=== PATIENT | male | born 1955 | race Caucasian/White ===

== ENCOUNTER 2017-08-24 12:57 | Inpatient (IN) ==
[2017-08-24] MEDS ORDERED: NITROGLYCERIN SL 0.4 MG TABLET SL PRN ×2 (13:20→14:27)
[2017-08-24] MEDS ORDERED: NITROGLYCERIN 2% OINT 1 INCH/GM PACK TOP STA (13:20)
[2017-08-24] MEDS ORDERED: METOPROLOL TARTRATE 5 MG/5 ML VIAL IV STA (13:20)
[2017-08-24] MEDS ORDERED: METOPROLOL TARTRATE 5 MG/5 ML VIAL IV ONE (13:39)
[2017-08-24] MEDS ORDERED: NITROGLYCERIN SL 0.4 MG TABLET SL ONE (13:39)
[2017-08-24] MEDS ORDERED: NITROGLYCERIN 2% OINT 1 INCH/GM PACK TOP ONE (13:40)
[2017-08-24] MEDS ORDERED: METOPROLOL TARTRATE 25 MG TABLET PO STA (13:46)
[2017-08-24] MEDS ORDERED: METOPROLOL TARTRATE 25 MG TABLET ONE (14:10)
[2017-08-24] MEDS ORDERED: MAGNESIUM SULF RIDER 4 GM in PREMIX 1 EACH IV PRN (14:20)
[2017-08-24] MEDS ORDERED: MAGNESIUM SULF RIDER 2 GM in PREMIX 1 EACH IV PRN (14:20)
[2017-08-24] MEDS ORDERED: ZALEPLON 5 MG CAPSULE PO PRN (14:20)
[2017-08-24] MEDS ORDERED: POTASSIUM CHLORIDE 20 MEQ TABLET PO PRN (14:20)
[2017-08-24] MEDS ORDERED: ONDANSETRON 4 MG/2 ML VIAL IV PRN (14:20)
[2017-08-24] MEDS ORDERED: MORPHINE 2 MG/1 ML SYRINGE IV PRN (14:20)
[2017-08-24] MEDS ORDERED: SODIUM CHLORIDE 0.9% 1,000 ML IV SCH (14:30)
[2017-08-24] MEDS ORDERED: ASPIRIN CHEW 81 MG TABLET PO ONE (21:25)
[2017-08-24] MEDS: ENOXAPARIN 120 MG/0.8 ML SYRINGE SUBCUT SCH (21:45)
[2017-08-24] MEDS: METOPROLOL TARTRATE 25 MG TABLET PO SCH (21:45)
[2017-08-24] MEDS: PANTOPRAZOLE 40 MG TABLET PO SCH (21:45)
[2017-08-24] MEDS: SUCRALFATE 1 GM/10 ML UDCUP PO SCH (21:45)
[2017-08-24] MEDS: ATORVASTATIN 20 MG TABLET PO SCH (21:45)
[2017-08-25 06:13] LABS: Basophils % 0.3 % (0.0-0.8); Eosinophils % 0.3 % (0.00-10.9); Hematocrit 45.1 VOL% (42.0-52.0); Hemoglobin 15.6 GM/DL (14.0-18.0); Immature Granulocytes % 0.5 %; Immature Granulocytes Absolute 0.06 #; Lymphocytes # 1.7 10*3/uL (1.4-4.0); Lymphocytes % 14.5 % (21.2-54.2); Mean Corpuscular HGB Conc 34.6 GM/DL (32-36); Mean Corpuscular Hemoglobin 32 PG (27-34); Mean Platelet Volume 10.3 FL (9.6-12.0); Monocytes # 1.3 10*3/uL (0.11-0.8); Neutrophils # 8.6 10*3/uL (1.4-7.4); Neutrophils % 73.4 % (38.7-73.9); Platelet Count 166 T/CUMM (130-400); Red Cell Distribution Width 13.1 % (9.3-17.3); White Blood Count 11.7 T/CUMM (4-12)
[2017-08-25 06:39] LABS: Albumin 3.8 G/DL (3.4-5.0); Bilirubin,Total 1.4 MG/DL (0.2-1.0); Calcium 8.6 MG/DL (8.5-10.1); Osmolality,Calculated 279.4 MOS/KG (273-304); Potassium 3.8 MMOL/L (3.5-5.1); Total Protein 6.5 G/DL (6.4-8.3)
[2017-08-25 06:52] LABS: Risk Ratio 3.48
[2017-08-25] MEDS: SUCRALFATE 1 GM/10 ML UDCUP PO SCH ×4 (07:34→20:41)
[2017-08-25] MEDS: ENOXAPARIN 120 MG/0.8 ML SYRINGE SUBCUT SCH ×2 (08:26→20:41)
[2017-08-25] MEDS: PANTOPRAZOLE 40 MG TABLET PO SCH ×2 (08:26→20:41)
[2017-08-25] MEDS: ASPIRIN 325 MG TABLET PO SCH (08:26)
[2017-08-25] MEDS: METOPROLOL TARTRATE 25 MG TABLET PO SCH ×2 (08:26→20:41)
[2017-08-25] MEDS ORDERED: POTASSIUM CHLORIDE RIDER 10 MEQ in PREMIX 1 EACH IV PRN (15:32)
[2017-08-25] MEDS ORDERED: DIAZEPAM 5 MG TABLET PO ONE (15:32)
[2017-08-25] MEDS ORDERED: diphenhydrAMINE CAP 25 MG CAPSULE PO ONE (15:32)
[2017-08-25] MEDS ORDERED: MAGNESIUM SULF RIDER 2 GM in PREMIX 1 EACH IV PRN (15:32)
[2017-08-25] MEDS: amLODIPine 5 MG TABLET PO SCH (16:09)
[2017-08-25] MEDS: ATORVASTATIN 20 MG TABLET PO SCH (20:41)
[2017-08-25] MEDS: SODIUM CHLORIDE 0.9% 1,000 ML IV SCH (22:21)
[2017-08-26 03:23] LABS: Basophils % 0.4 % (0.0-0.8); Eosinophils # 0.1 10*3/uL (0.0-0.87); Eosinophils % 0.5 % (0.00-10.9); Hematocrit 41.5 VOL% (42.0-52.0); Hemoglobin 14.2 GM/DL (14.0-18.0); Immature Granulocytes % 0.4 %; Immature Granulocytes Absolute 0.04 #; Lymphocytes # 1.9 10*3/uL (1.4-4.0); Lymphocytes % 19.3 % (21.2-54.2); Mean Corpuscular HGB Conc 34.2 GM/DL (32-36); Mean Corpuscular Hemoglobin 32 PG (27-34); Mean Corpuscular Volume 92.4 FL (87-102); Mean Platelet Volume 10.7 FL (9.6-12.0); Monocytes # 1.1 10*3/uL (0.11-0.8); Monocytes % 11.3 % (1.7-12.7); Neutrophils # 6.8 10*3/uL (1.4-7.4); Neutrophils % 68.1 % (38.7-73.9); Platelet Count 164 T/CUMM (130-400); Red Blood Count 4.49 MC/CUMM (3.8-5.5); Red Cell Distribution Width 12.8 % (9.3-17.3); White Blood Count 9.9 T/CUMM (4-12)
[2017-08-26 03:57] LABS: Calcium 8.2 MG/DL (8.5-10.1); Osmolality,Calculated 279.4 MOS/KG (273-304); Potassium 3.9 MMOL/L (3.5-5.1)
[2017-08-26] MEDS ORDERED: diphenhydrAMINE CAP 25 MG CAPSULE PO ONE (06:00)
[2017-08-26] MEDS ORDERED: DIAZEPAM 5 MG TABLET PO ONE (06:00)
[2017-08-26] MEDS: SODIUM CHLORIDE 0.9% 1,000 ML IV SCH ×2 (06:41→15:11)
[2017-08-26] MEDS: PANTOPRAZOLE 40 MG TABLET PO SCH ×2 (08:23→20:39)
[2017-08-26] MEDS: ASPIRIN 325 MG TABLET PO SCH (08:23)
[2017-08-26] MEDS: amLODIPine 5 MG TABLET PO SCH (08:23)
[2017-08-26] MEDS: METOPROLOL TARTRATE 25 MG TABLET PO SCH ×2 (08:24→20:39)
[2017-08-26] MEDS: SUCRALFATE 1 GM/10 ML UDCUP PO SCH ×4 (08:24→20:39)
[2017-08-26] MEDS ORDERED: LIDOCAINE 1% 20 ML VIAL ONE (08:40)
[2017-08-26] MEDS ORDERED: MIDAZOLAM 2 MG/2 ML VIAL ONE (08:46)
[2017-08-26] MEDS ORDERED: MEPERIDINE 25 MG/1 ML VIAL ONE (08:46)
[2017-08-26] MEDS ORDERED: HEPARIN 5,000 UNIT/1 ML VIAL ONE (08:59)
[2017-08-26] MEDS ORDERED: TIROFIBAN 5,000 MCG/100 ML PREMIX IV ONE (09:05)
[2017-08-26] MEDS ORDERED: TIROFIBAN 5,000 MCG/100 ML PREMIX IV SCH (09:13)
[2017-08-26] MEDS ORDERED: TICAGRELOR 90 MG TABLET ONE (09:41)
[2017-08-26] MEDS ORDERED: NIFEdipine 10 MG CAPSULE ONE (09:48)
[2017-08-26] MEDS: LOSARTAN 25 MG TABLET PO SCH ×2 (14:35→20:39)
[2017-08-26] MEDS: ATORVASTATIN 20 MG TABLET PO SCH (20:39)
[2017-08-26] MEDS: TICAGRELOR 90 MG TABLET PO SCH (20:39)
[2017-08-27 02:45] LABS: Basophils % 0.4 % (0.0-0.8); Eosinophils # 0.1 10*3/uL (0.0-0.87); Eosinophils % 0.8 % (0.00-10.9); Hematocrit 37.5 VOL% (42.0-52.0); Hemoglobin 13.6 GM/DL (14.0-18.0); Immature Granulocytes % 0.6 %; Immature Granulocytes Absolute 0.05 #; Lymphocytes # 1.3 10*3/uL (1.4-4.0); Lymphocytes % 14.6 % (21.2-54.2); Mean Corpuscular HGB Conc 36.3 GM/DL (32-36); Mean Corpuscular Hemoglobin 33 PG (27-34); Mean Corpuscular Volume 90.1 FL (87-102); Mean Platelet Volume 10.3 FL (9.6-12.0); Monocytes # 0.9 10*3/uL (0.11-0.8); Neutrophils # 6.6 10*3/uL (1.4-7.4); Neutrophils % 73.6 % (38.7-73.9); Platelet Count 157 T/CUMM (130-400); Red Blood Count 4.16 MC/CUMM (3.8-5.5); Red Cell Distribution Width 12.7 % (9.3-17.3)
[2017-08-27 03:30] LABS: Calcium 7.9 MG/DL (8.5-10.1); Osmolality,Calculated 279.4 MOS/KG (273-304); Potassium 3.9 MMOL/L (3.5-5.1)
[2017-08-27 08:06] VITALS: BP 134/68
[2017-08-27] MEDS ORDERED: ASPIRIN CHEW 81 MG TABLET PO SCH (09:00)
[2017-08-27] MEDS: LOSARTAN 25 MG TABLET PO SCH (09:16)
[2017-08-27] MEDS: amLODIPine 5 MG TABLET PO SCH (09:16)
[2017-08-27] MEDS: SUCRALFATE 1 GM/10 ML UDCUP PO SCH (09:16)
[2017-08-27] MEDS: TICAGRELOR 90 MG TABLET PO SCH (09:16)
[2017-08-27] MEDS: METOPROLOL TARTRATE 25 MG TABLET PO SCH (09:16)
[2017-08-27] MEDS: PANTOPRAZOLE 40 MG TABLET PO SCH (09:17)
[2017-08-27] MEDS ORDERED: ATORVASTATIN 20 MG TABLET PO SCH (10:28)
== END 2017-08-27 11:49 | disposition home or self-care (01) | DRG 247 ==
LOC: N.ED 12:57 → N.EDINP 14:20 → N.TELES 15:40
PROVIDERS: ADMIT Internal Medicine Cardiovascular Disease; ATTEND Internal Medicine Cardiovascular Disease
PROC: CLCCHCL (ICD-10-PCS; 2017-08-26 09:15)